=== PATIENT | female | born 2000 | race Caucasian/White ===

== ENCOUNTER 2024-02-03 21:48 | Inpatient (IN) | payer BC ==
[2024-02-03] MEDS ORDERED: Sodium Chloride 0.9% 10 ML Syringe FLUSH PRN (22:29)
[2024-02-03] MEDS ORDERED: Lidocaine 1% 50 ML MDV INJECT PRN (22:29)
[2024-02-03] MEDS ORDERED: Nalbuphine 10 MG/ML Syringe IVPUSH PRN (22:29)
[2024-02-03] MEDS ORDERED: Calcium Carbonate 500 MG Tab.Chew PO PRN (22:29)
[2024-02-03 22:48] LABS: BASOPHILS PERCENT AUTO 0.4 % (0.0-1.0); EOSINOPHILS ABSOLUTE AUTO 0.1 K/mm3 (0.0-0.4); EOSINOPHILS PERCENT AUTO 1.3 % (0.0-6.0); HEMATOCRIT 36.6 % (37.0-47.0); HEMOGLOBIN 12.2 gm/dl (12.0-16.0); IMMATURE GRAN ABSOLUTE AUTO 0.03 K/mm3 (0.00-0.05); IMMATURE GRAN PERCENT AUTO 0.3 % (0.0-0.4); LYMPHOCYTES ABSOLUTE AUTO 2.6 K/mm3 (1.0-4.8); LYMPHOCYTES PERCENT AUTO 23.5 % (24.0-44.0); MEAN CORPUSCULAR HEMOGLOBIN 30.6 pg (28.0-32.0); MEAN CORPUSCULAR HGB CONC 33.3 g/dl (32.0-36.0); MEAN CORPUSCULAR VOLUME 91.7 fl (83.0-99.0); MEAN PLATELET VOLUME 9.9 fl (9.4-12.3); MONOCYTES PERCENT AUTO 9.1 % (0.0-8.0); NEUTROPHILS ABSOLUTE AUTO 7.2 K/mm3 (1.8-7.7); NEUTROPHILS PERCENT AUTO 65.4 % (41.0-71.0); PLATELET COUNT,PLT 214 K/mm3 (150-400); RED BLOOD CELL COUNT 3.99 M/mm3 (4.10-5.30); WHITE BLOOD CELL COUNT,WBC 11.04 K/mm3 (3.9-11.3)
[2024-02-03] MEDS: Oxytocin/0.9 % Sodium Chloride 30 UNIT/500 ML BAG IV SCH (23:07)
[2024-02-03] MEDS: Lactated Ringers 1,000 ML IV SCH (23:07)
[2024-02-04] MEDS ORDERED: Nalbuphine HCl 10 MG/ 1ML Amp IVPUSH PRN ×2 (02:46→02:50)
[2024-02-04] MEDS: Ondansetron 4 MG/2 ML SDV IVPUSH PRN (02:47)
[2024-02-04] MEDS: Nalbuphine 10 MG/1 ML Vial IVPUSH PRN (03:00)
[2024-02-04] MEDS ORDERED: diphenhydrAMINE 50 MG/ML SDV IVPUSH PRN (06:19)
[2024-02-04] MEDS: Bupivacaine/fentaNYL/NS 100 ML Bag EPIDUR PRN (06:30)
[2024-02-04] MEDS: ePHEDrine 50 MG/ML SDV IVPUSH PRN (06:39)
[2024-02-04] MEDS: Sodium Chloride 0.9% 10 ML Syringe FLUSH SCH (19:33)
[2024-02-04] MEDS: Oxytocin/0.9 % Sodium Chloride 30 UNIT/500 ML BAG IV SCH (22:52)
[2024-02-04] MEDS ORDERED: Acetaminophen 325 MG Tab PO PRN (23:39)
[2024-02-05] MEDS: Ibuprofen 600 MG Tab PO SCH (00:02)
[2024-02-05] MEDS: Benzocaine/Menthol 20%-0.5% Spray 78 GM Cannister TOP PRN (00:51)
[2024-02-05] MEDS: Witch Hazel Medicated Pads 40/Jar TOP PRN (00:51)
[2024-02-05] MEDS: Docusate Sodium 100 MG Cap PO PRN (10:04)
== END 2024-02-05 23:17 | disposition home or self-care (01) | DRG 560 ==
LOC: JD.OBCHECK 21:48 → JD.OB 21:50 → JD.OBCHECK 21:52 → JD.OB 21:53 → OBSVTOIN 02-04 22:35 → JD.OB 02-04 22:36
PROVIDERS: ADMIT Family Medicine; ATTEND Family Medicine
PROC: 10E0XZZ Delivery of Products of Conception, External Approach (ICD-10-PCS; principal; 2024-02-04)
PROC: 3E0R3BZ Introduction of Anesthetic Agent into Spinal Canal, Percutaneous Approach (ICD-10-PCS; 2024-02-04)
PROC: 00HU33Z Insertion of Infusion Device into Spinal Canal, Percutaneous Approach (ICD-10-PCS; 2024-02-04)
PROC: 10H07YZ Insertion of Other Device into Products of Conception, Via Natural or Artificial Opening (ICD-10-PCS; 2024-02-04)
DX: O42.02 Full-term premature rupture of membranes, onset of labor within 24 hours of rupture (principal); Z3A.39 39 weeks gestation of pregnancy; Z37.0 Single live birth; O66.0 Obstructed labor due to shoulder dystocia; O70.0 First degree perineal laceration during delivery; O76 Abnormality in fetal heart rate and rhythm complicating labor and delivery
CPT/HCPCS: 36415; 51702; 59025; 59409; 84112; 85025; 86592; 86850; 86900; 86901; A9270-GY; J2300; J2405; J3490; J7120; J7999